=== PATIENT | male | born 1965 | race Caucasian/White ===

== ENCOUNTER 2016-12-20 07:31 | Outpatient (CLI) | payer MEDICAID | END 2016-12-20 07:32 | disposition home or self-care (01) | DX: R91.8 Other nonspecific abnormal finding of lung field (principal) ==

== ENCOUNTER 2017-07-03 09:50 | Outpatient (CLI) | payer MEDICAID ==
--- NOTE | 2017-07-03 17:36 | XRAY Report ---
LUMBAR SPINE, THREE VIEWS: 07/03/2017 HISTORY: Back pain. COMPARISON: None. FINDINGS: The vertebral bodies are normal in height and alignment. The disk spaces are well maintai momo. No significant facet joint arthropathy. Sacroiliac joints are grossly unremarkable. IMPRESSION: NEGATIVE THREE VIEW LUMBAR SPINE. IF PAIN PERSISTS, CONSIDER MRI. JOB #: [id number] EXT JOB #:[id number]
--- NOTE | 2017-07-03 17:43 | XRAY Report ---
PELVIS AND RIGHT HIP: 07/03/2017 AP view of the pelvis and lateral view of the right hip show the hip joints to be well maintained. N o fracture, malalignment, joint space narrowing, bone destruction or other finding. IMPRESSION: NEGATIVE PELVIS AND RIGHT HIP. JOB #: [id number] EXT JOB #:[id number]
== END 2017-07-03 09:51 | disposition home or self-care (01) ==
LOC: DI.S 09:50
PROVIDERS: ATTEND Nurse Practitioner Family
DX: M54.5 Low back pain (principal); M25.551 Pain in right hip; G89.29 Other chronic pain
CPT/HCPCS: 72100

== ENCOUNTER 2018-11-03 14:15 | Outpatient (CLI) | payer MEDICAID | END 2018-11-03 14:16 | disposition EMS.NT | LOC: EMS 14:15 | PROVIDERS: ATTEND Surgery | DX: R42 Dizziness and giddiness (principal); R03.0 Elevated blood-pressure reading, without diagnosis of hypertension ==

== ENCOUNTER 2019-01-24 07:25 | Outpatient (CLI) | payer MEDICAID ==
[2019-01-24 10:58] LABS: CALCIUM 9.4 mg/dL (8.5-10.3); CREATININE 0.8 mg/dL (0.6-1.2)
== END 2019-01-24 07:26 | disposition home or self-care (01) ==
LOC: LAB.F 07:25
PROVIDERS: ATTEND Internal Medicine Cardiovascular Disease
DX: I10 Essential (primary) hypertension (principal)
CPT/HCPCS: 36415; 80048

== ENCOUNTER 2019-03-17 07:19 | Outpatient (CLI) | payer MEDICAID ==
--- NOTE | 2019-03-17 10:06 | Ultrasound Report ---
Reason: ABDOMINAL PAIN Procedure Date: 03/17/2019 Accession Number: [id number] / [id number] Procedure: US - Abdomen Limited CPT Code: FULL RESULT: EXAM: ABDOMEN ULTRASOUND LIMITED, RUQ EXAM DATE: 03/17/2019 07:26 AM. CLINICAL HISTORY: Abdominal pain. Right upper quadrant pain that radiates at times to right lower quadrant. COMPARISON: None. TECHNIQUE: Real-time scanning was performed with static images obtained. FINDINGS: Liver: Hepatic parenchyma is echogenic which limits evaluation for underlying mass, none is seen. Right lobe of the liver measures at least 17 cm. Main portal vein flow: Hepatopetal. Gallbladder: Normal. No stones, wall thickening, or sonographic Mendoza's sign. Biliary System: CBD measures 5 mm. No intrahepatic or extrahepatic ductal dilatation. Other: Right kidney measures 11.3 cm in maximal sagittal dimension and demonstrates no gross hydronephrosis or calculus. IMPRESSION: Echogenic liver which can be seen with parenchymal disease such as steatosis. Please note that during the examination of the right kidney, the patient's pain appears to localize to the flank area of the kidney. No hydronephrosis or renal calculus. RADIA
== END 2019-03-17 07:20 | disposition home or self-care (01) ==
LOC: DI 07:19
PROVIDERS: ATTEND Physician Assistant Medical
DX: R10.9 Unspecified abdominal pain (principal); R93.2 Abnormal findings on diagnostic imaging of liver and biliary tract
CPT/HCPCS: 76705

== ENCOUNTER 2019-04-04 07:30 | Outpatient (CLI) | payer MEDICAID ==
[2019-04-04 10:00] LABS: BASOPHILS # (AUTO) 0.1 10^3/uL (0.0-0.1); BASOPHILS % (AUTO) 1.7 %; EOSINOPHILS # (AUTO) 0.5 10^3/uL (0.0-0.7); EOSINOPHILS % (AUTO) 7.3 %; HGB - HEMOGLOBIN 13.1 g/dL (14.0-18.0); LYMPHOCYTES # (AUTO) 1.6 10^3/uL (1.5-3.5); LYMPHOCYTES % (AUTO) 21.5 %; MEAN CORPUSCULAR HEMOGLOBIN 29.1 pg (27.0-31.0); MEAN CORPUSCULAR HGB CONC 31.5 g/dL (32.0-36.0); MEAN CORPUSCULAR VOLUME 92.4 fL (80.0-94.0); MEAN PLATELET VOLUME 10.9 fL (7.4-11.4); MONOCYTES # (AUTO) 0.7 10^3/uL (0.0-1.0); NEUTROPHILS # (AUTO) 4.4 10^3/uL (1.5-6.6); NEUTROPHILS % (AUTO) 59.9 %; PLT - PLATELET COUNT 206 10^3/uL (130-450); RED CELL DISTRIBUTION WIDTH 12.6 % (12.0-15.0); WHITE BLOOD COUNT 7.3 x10^3/uL (4.8-10.8)
== END 2019-04-04 07:31 | disposition home or self-care (01) ==
LOC: LAB.F 07:30
PROVIDERS: ATTEND Internal Medicine Gastroenterology
DX: I10 Essential (primary) hypertension (principal); R10.31 Right lower quadrant pain; E78.5 Hyperlipidemia, unspecified; I25.10 Atherosclerotic heart disease of native coronary artery without angina pectoris; F10.10 Alcohol abuse, uncomplicated; R19.5 Other fecal abnormalities
CPT/HCPCS: 36415; 80053; 80061; 83690; 83721; 85025

== ENCOUNTER 2019-04-08 08:32 | Day surgery (SDC) | payer MEDICAID ==
[2019-04-08] MEDS ORDERED: LACTATED RINGERS 1,000 ML IV ONE (09:24)
[2019-04-08] MEDS ORDERED: fentaNYL 250 MCG/5 ML VIAL IVP ONE (10:04)
[2019-04-08] MEDS ORDERED: MIDAZOLAM 2 MG/2 ML VIAL IVP ONE (10:04)
[2019-04-08] MEDS ORDERED: LIDO GARGLE 30 ML BOTTLE ONE (10:15)
[2019-04-08 11:32] VITALS: BP 106/67
[2019-04-08] MEDS ORDERED: LIDO GARGLE 30 ML BOTTLE PO ONE (11:35)
== END 2019-04-08 08:33 | disposition home or self-care (01) ==
LOC: SDS 08:32
PROVIDERS: ATTEND Internal Medicine Gastroenterology
PROC: 0DB58ZX Excision of Esophagus, Via Natural or Artificial Opening Endoscopic, Diagnostic (ICD-10-PCS; 2019-04-08)
PROC: 0DBL8ZZ Excision of Transverse Colon, Via Natural or Artificial Opening Endoscopic (ICD-10-PCS; 2019-04-08)
PROC: 0DBM8ZZ Excision of Descending Colon, Via Natural or Artificial Opening Endoscopic (ICD-10-PCS; 2019-04-08)
PROC: 0DB98ZX Excision of Duodenum, Via Natural or Artificial Opening Endoscopic, Diagnostic (ICD-10-PCS; principal; 2019-04-08 10:15)
PROC: 0DB78ZX Excision of Stomach, Pylorus, Via Natural or Artificial Opening Endoscopic, Diagnostic (ICD-10-PCS; 2019-04-08 10:15)
DX: R19.5 Other fecal abnormalities (principal); R10.31 Right lower quadrant pain; D12.4 Benign neoplasm of descending colon; D12.3 Benign neoplasm of transverse colon; K57.30 Diverticulosis of large intestine without perforation or abscess without bleeding; R10.13 Epigastric pain; K21.9 Gastro-esophageal reflux disease without esophagitis; K22.9 Disease of esophagus, unspecified; K29.50 Unspecified chronic gastritis without bleeding; F10.20 Alcohol dependence, uncomplicated; K70.0 Alcoholic fatty liver; I11.0 Hypertensive heart disease with heart failure; I50.9 Heart failure, unspecified; F17.210 Nicotine dependence, cigarettes, uncomplicated; Z79.82 Long term (current) use of aspirin; Z79.899 Other long term (current) drug therapy; Z80.0 Family history of malignant neoplasm of digestive organs
CPT/HCPCS: 43239; 45380; 45385; A9270; J3010; J7120

== ENCOUNTER 2019-09-13 06:50 | Outpatient (CLI) | payer MEDICAID ==
[~2019-09-13 06:50] MED LIST: IOVERSOL 320 100 ML VIAL IVP ONE; IOVERSOL 320 50 ML VIAL ONE
[2019-09-13] MEDS ORDERED: IOVERSOL 320 100 ML VIAL IVP ONE ×2 (06:55→08:47)
[2019-09-13] MEDS ORDERED: IOVERSOL 320 50 ML VIAL ONE (06:55)
[2019-09-13] MEDS ORDERED: IOVERSOL 320 50 ML VIAL PO ONE (08:47)
--- NOTE | 2019-09-13 08:58 | CT Report ---
Reason: RLQ ABDOMINAL PAIN Procedure Date: 09/13/2019 Accession Number: [id number] / [id number] Procedure: CT - Abdomen/Pelvis W CPT Code: Final Report FULL RESULT: EXAM: CT ABDOMEN AND PELVIS EXAM DATE: 09/13/2019 08:35 AM. CLINICAL HISTORY: RLQ ABDOMINAL PAIN. COMPARISONS: CHEST W/O 12/20/2016 8:28 AM. TECHNIQUE: Routine helical CT imaging was performed through the abdomen and pelvis. IV contrast: 90 cc Optiray 320. Enteric contrast: No. Reconstructions: Coronal and sagittal. In accordance with CT protocol optimization, one or more of the following dose reduction techniques were utilized for this exam: automated exposure control, adjustment of mA and/or KV based on patient size, or use of iterative reconstructive technique. FINDINGS: Lung Bases: 1.2 cm right base pulmonary nodule appears essentially unchanged compared to 2017 and is likely benign. No new nodules. No pleural effusions. Liver: Diffuse mild hepatic parenchymal hypoattenuation could reflect diffuse mild underlying steatosis. No enhancing liver lesions. Gallbladder/Bile Ducts: Unremarkable. Spleen: No splenomegaly or focal lesion. Small accessory spleen seen inferior to the spleen Pancreas: Punctate pancreatic calcifications could reflect sequelae of chronic pancreatitis. No acute inflammation. No ductal dilation. Adrenal Glands: Normal. Kidneys: Normal. No masses or hydronephrosis. Peritoneal Cavity/Bowel: Unremarkable stomach. Normal caliber bowel loops without obstruction. Normal appendix. Scattered sigmoid colonic diverticula without inflammation. No enlarged intra-abdominal lymph nodes. No fluid collections. Pelvic Organs: Unremarkable urinary bladder for degree of distention. Prostate and seminal vesicles are normal. No enlarged pelvic or inguinal lymph nodes. Vasculature: No aneurysms or other significant abnormality. Bones: No significant abnormality. Other: Tiny fat-containing inguinal hernias bilaterally. IMPRESSION: 1. No acute abnormality seen in the abdomen or pelvis by CT. Normal appendix. No CT findings to explain acute pain. 2. Sigmoid colonic diverticulosis without evidence of acute diverticulitis. 3. Probable diffuse mild hepatic steatosis. RADIA
== END 2019-09-13 06:51 | disposition home or self-care (01) ==
LOC: DI 06:50
PROVIDERS: ATTEND Internal Medicine
DX: R03.1 Nonspecific low blood-pressure reading (principal); K57.30 Diverticulosis of large intestine without perforation or abscess without bleeding
CPT/HCPCS: 74177; Q9967

== ENCOUNTER 2020-05-06 07:13 | Outpatient (CLI) | payer MEDICAID ==
[2020-05-06 07:47] LABS: ALBUMIN 4.3 g/dL (3.2-5.5); ALBUMIN/GLOBULIN RATIO 1.5 (1.0-2.2); BILIRUBIN,TOTAL 0.6 mg/dL (0.2-1.0); TOTAL PROTEIN 7.2 g/dL (6.7-8.2)
--- NOTE | 2020-05-06 10:10 | CT Report ---
PROCEDURE: CHEST WO INDICATIONS: PULMONARY NODULES TECHNIQUE: Noncontrast 5 mm thick sections acquired from the pulmonary apices to the posterior costophrenic angl es. 7 mm thick coronal and sagittal MIP reformats were then acquired. For radiation dose reduction, the following was used: automated exposure control, adjustment of mA and/or kV according to patient size. COMPARISON: 12/20/2016 and 07/29/2013 FINDINGS: Image quality: Excellent. Lungs and pleura: Previously noted left upper lobe nodule is unchanged, again measuring approximately 3 mm (series 4 image 43). Previously described subpleural right lower lobe nodule is also unchanged, again measuring approximately 1.1 cm (series 4 image 190). There is no new or enlarging pulmonary no dule. No significant pleural abnormality. Mediastinum: Normal heart size. No pericardial effusion. Calcific coronary atherosclerosis again note d. Nonaneurysmal abdominal aorta. Normal caliber main pulmonary trunk. No surgical enlarged mediastin al lymph node. Linn not well assessed due to lack of IV contrast. Bones and chest wall: No suspicious bony lesions. No vertebral body compression fractures. No axil elisha or supraclavicular adenopathy by size criteria. Abdomen: Visualized upper abdominal solid organs and bowel loops appear normal in the absence of con trast. IMPRESSION: Unchanged bilateral pulmonary nodules when compared with 07/29/2013. These are statistically benign a nd require no additional follow-up. Reviewed by: Jerald Estrada MD on 05/06/2020 10:09 AM PDT Approved by: Jerald Estrada MD on 05/06/2020 10:09 AM PDT Station ID: [id number]
== END 2020-05-06 07:14 | disposition home or self-care (01) ==
LOC: DI 07:13
PROVIDERS: ATTEND Internal Medicine
DX: R91.8 Other nonspecific abnormal finding of lung field (principal); I25.10 Atherosclerotic heart disease of native coronary artery without angina pectoris
CPT/HCPCS: 36415; 71250; 80053

== ENCOUNTER 2020-11-08 22:37 | Emergency (ER) | payer MEDICAID ==
[2020-11-08] MEDS ORDERED: KETOROLAC 60 MG/2 ML VIAL IM STA (23:12)
[2020-11-08] MEDS ORDERED: predniSONE 20 MG TABLET PO STA (23:14)
--- NOTE | 2020-11-08 23:43 | ED Physician Documentation ---
History of Present Illness - Stated complaint Stated Complaint: LT FOOT PX - Chief complaint Chief Complaint: Ext Problem - History obtained from History obtained from: Patient - Additonal information Additional information: 55yM with pmh gout p/w L first toe pain he attributes to a gout flare. constant, gradual onset, severe, 10/10, nonradiating, worse with walking, a/w mild swelling but no redness or fevers. no traumatic injury Review of Systems Constitutional: denies: Fever Skin: reports: Other (swelling) Musculoskeletal: reports: Extremity pain, Joint pain PD PAST MEDICAL HISTORY - Past Medical History Past Medical History: Yes Cardiovascular: Hypertension, High cholesterol Respiratory: None Endocrine/Autoimmune: None GI: GERD : None HEENT: None Psych: None Musculoskeletal: Gout Derm: None - Past Surgical History Past Surgical History: Yes Ortho: Shoulder arthroplasty Cardiovascular: Coronary stent - Present Medications Home Medications: Ambulatory Orders Medication Instructions Recorded Confirmed Aspirin Chewable [St Darryl 81 mg PO DAILY 04/08/19 04/08/19 Aspirin] Atorvastatin Calcium 40 mg PO DAILY 04/08/19 04/08/19 Losartan Potassium [Cozaar] 100 mg PO DAILY 04/08/19 04/08/19 Omeprazole/Sodium Bicarbonate 1 each PO DAILY 04/08/19 04/08/19 [Omeprazole-Bicarb 20-1,100 Cap] amLODIPine [Norvasc] 5 mg PO DAILY 04/08/19 04/08/19 predniSONE [Prednisone 21-TAB dose 40 mg PO QDAC #21 tab.ds.pk 11/08/20 pack] - Allergies Allergies/Adverse Reactions: Allergies Allergy/AdvReac Type Severity Reaction Status Date / Time No Known Drug Allergies Allergy Verified 11/08/20 22:45 - Social History Does the pt smoke?: Yes Smoking Status: Current every day smoker Does the pt drink ETOH?: Yes Does the pt have substance abuse?: No - Immunizations Immunizations are current?: No - POLST Patient has POLST: No PD ED PE NORMAL - Vitals Vital signs reviewed: Yes - General General: Alert and oriented X 3 - Extremities Extremities: Other (L first pip joint swollen and ttp. no calor/rubor) - Neuro Neuro: Alert and oriented X 3 Results - Vitals Vitals: Vital Signs - 24 hr 11/08/20 22:45 Temperature 36.6 C Heart Rate 65 Respiratory 16 Rate Blood Pressure 152/90 H O2 Saturation 98 Oxygen O2 Source Room air PD MEDICAL DECISION MAKING - ED course ED course: 55yM p/w simple gout flare. He has history of NSAID intolerance 2/2 gerd ther efore will prescribe short steroid course. patient will f/u with pcp. return precautions given. Departure - Departure Disposition: Home, Self Care Clinical Impression: Gout attack Condition: Good Instructions: Gout Attack Tx Prescriptions: predniSONE [Prednisone 21-TAB dose pack] 40 mg PO QDAC #21 tab.ds.pk Comments: You were seen in the emergency department for a gout attack. You were given a st jeffy anti-inflammatory and steroid. You should take your prescription and supplement it with ibuprofen 400 mg (2 regular pills) as needed every 6 hours for pain. Take on a full stomach. do not take if you have bleeding. Follow up with your primary doctor for continuation of your steroid prescription. You should continue steroids until your symptoms go away, then taper down by 10mg daily over the course of a week. Return to the ED for any new or worsening symptoms, if you have fevers, or other concerns.
[2020-11-08 23:57] VITALS: BP 148/88
== END 2020-11-08 23:56 | disposition home or self-care (01) ==
LOC: ED 22:37
DX: M10.072 Idiopathic gout, left ankle and foot (principal); Z88.8 Allergy status to other drugs, medicaments and biological substances; K21.9 Gastro-esophageal reflux disease without esophagitis; I10 Essential (primary) hypertension; Z79.82 Long term (current) use of aspirin; F17.200 Nicotine dependence, unspecified, uncomplicated
CPT/HCPCS: 96372; 99281; 99283; J7512

== ENCOUNTER 2021-12-11 10:31 | Emergency (ER) | payer MEDICAID ==
--- NOTE | 2021-12-11 11:10 | ED Physician Documentation ---
History of Present Illness - Stated complaint Stated Complaint: SHOULDER PAIN - Chief complaint Chief Complaint: Resp - History obtained from History obtained from: Patient - History of Present Illness Timing: Today Pain level max: 6 Pain level now: 5 - Additonal information Additional information: 56-year-old male presents to the emergency department complaining of cough with brown sputum for the past 2 months. Nothing makes it better or worse. He states he is also having left shoulder pain for the past 2 to 3 months. Worse with movement, better with rest. Does not recall any injury. He states he had fevers this week. Has taken 2 home negative Covid test. Has had his Covid vaccinations. No numbness or tingling. Does not smoke. No vaping. Denies any other drug use. Review of Systems Constitutional: denies: Fever GI: denies: Vomiting, Diarrhea Skin: denies: Rash Musculoskeletal: denies: Neck pain, Back pain Neurologic: denies: Headache PD PAST MEDICAL HISTORY - Past Medical History Past Medical History: Yes Cardiovascular: High cholesterol, Hypertension Respiratory: None Endocrine/Autoimmune: None GI: GERD : None HEENT: None Psych: None Musculoskeletal: Gout Derm: None - Past Surgical History Past Surgical History: Yes Ortho: Shoulder arthroplasty Cardiovascular: Coronary stent - Present Medications Home Medications: Ambulatory Orders Medication Instructions Recorded Confirmed Aspirin Chewable [St Darryl 81 mg PO DAILY 04/08/19 04/08/19 Aspirin] Atorvastatin Calcium 40 mg PO DAILY 04/08/19 04/08/19 Losartan Potassium [Cozaar] 100 mg PO DAILY 04/08/19 04/08/19 Omeprazole/Sodium Bicarbonate 1 each PO DAILY 04/08/19 04/08/19 [Omeprazole-Bicarb 20-1,100 Cap] amLODIPine [Norvasc] 5 mg PO DAILY 04/08/19 04/08/19 predniSONE [Prednisone 21-TAB dose 40 mg PO QDAC #21 tab.ds.pk 11/08/20 pack] Amox/Clav 875/125 [Augmentin] 1 tab PO Q12H #20 tablet 12/11/21 Doxycycline Monohydrate 100 mg PO BID #20 cap 12/11/21 - Allergies Allergies/Adverse Reactions: Allergies Allergy/AdvReac Type Severity Reaction Status Date / Time No Known Drug Allergies Allergy Verified 12/11/21 10:41 - Social History Does the pt smoke?: Yes Smoking Status: Current every day smoker Does the pt drink ETOH?: Yes Does the pt have substance abuse?: No - Immunizations Immunizations are current?: No - POLST Patient has POLST: No PD ED PE NORMAL - Vitals Vital signs reviewed: Yes - General General: Alert and oriented X 3, No acute distress - HEENT HEENT: PERRL, Moist mucous membranes - Neck Neck: Supple, no meningeal sign, No bony TTP - Cardiac Cardiac: RRR, No murmur - Respiratory Respiratory: No respiratory distress, Other (Rhonchi left upper lobe that does not clear with cough. Otherwise clear lungs) - Abdomen Abdomen: Soft, Non tender, Non distended - Back Back: No spinal TTP - Derm Derm: Warm and dry - Extremities Extremities: No deformity, Other (Mild tenderness to palpation, near the posterior aspect of the left AC joint. No glenohumeral tenderness. Pain with abduction of the left arm above 90 degrees. Neurovascularly intact including the axillary nerve.) - Neuro Neuro: Alert and oriented X 3 - Psych Psych: Normal mood, Normal affect - Free text exam Free text exam: 4 x 4 centimeter soft tissue swelling, doughy mass in the upper thoracic area. Results - Vitals Vitals: Vital Signs - 24 hr 12/11/21 12/11/21 12/11/21 10:37 10:55 12:32 Temperature 36.1 C L 36.5 C Heart Rate 69 67 66 Respiratory 18 17 16 Rate Blood Pressure 135/82 H 133/97 H 130/88 H O2 Saturation 97 94 96 Oxygen O2 Source Room air - Labs Labs: Laboratory Tests 12/11/21 12/11/21 11:32 11:32 WBC 8.5 RBC 4.55 L Hgb 13.3 L Hct 40.9 L MCV 89.9 MCH 29.2 MCHC 32.5 RDW 12.8 Plt Count 224 MPV 10.2 Neut # (Auto) 5.2 Lymph # (Auto) 2.0 [place] # (Auto) 0.7 Eos # (Auto) 0.5 Baso # (Auto) 0.1 Absolute Nucleated RBC 0.00 Nucleated RBC % 0.0 Sodium 138 Potassium 3.9 Chloride 104 Carbon Dioxide 25 Anion Gap 9.0 BUN 22 H Creatinine 1.1 Estimated GFR (MDRD) 69 L Glucose 95 Calcium 9.2 Total Bilirubin 0.6 AST 27 ALT 35 Alkaline Phosphatase 64 Total Protein 7.5 Albumin 4.4 Globulin 3.1 Albumin/Globulin Ratio 1.4 - Rads (name of study) cxr Radiology: Final report received, EMP read contemporaneously, See rad report L shoulder xray Radiology: Final report received, EMP read contemporaneously, See rad report PD MEDICAL DECISION MAKING - ED course Complexity details: reviewed results, re-evaluated patient, considered differential, d/w patient ED course: Chest x-ray does not show any acute abnormalities. Left shoulder x-ray shows moderate hypertrophic osteoarthrosis of the left AC joint with minimal glenohumeral joint change Given the amount of time that the coughing has persisted with the sputum changes, we will trial on antibiotics and see how he progresses. Patient declines any pain medication here or for home. Covid PCR was also sent. Patient is well-appearing, nontoxic. Afebrile. Patient counseled regarding signs and symptoms for which I believe and urgent re- evaluation would be necessary. Patient with good understanding of and agreement to plan and is comfortable going home at this time This document was made in part using voice recognition software. While efforts are made to proofread this document, sound alike and grammatical errors may occur. Departure - Departure Disposition: 01 Home, Self Care Clinical Impression: Atypical pneumonia Shoulder pain, left Qualifiers: Chronicity: acute Qualified Code(s): M25.512 - Pain in left shoulder Lipoma Qualifiers: Lipoma location: trunk Qualified Code(s): D17.1 - Benign lipomatous neoplasm of skin and subcutaneous tissue of trunk Condition: Good Instructions: ED Lipoma, ED Pneumonia Adult Follow-Up: your,doctor in 1 week [Other] [facility] [place] [Provider Group] [facility] [Provider Group] [facility] [Provider Group] Prescriptions: Amox/Clav 875/125 [Augmentin] 1 tab PO Q12H #20 tablet Doxycycline Monohydrate 100 mg PO BID #20 cap Comments: Take all antibiotics until gone. Follow-up with a primary care provider for further care. [facility] also has a [facility] office. Your prescriptions were sent to [facility] in [place]. Please return if you worsen. The swelling on the back appears to be a lipoma, but this should be followed up closely with a primary care provider. 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 No acute fracture or dislocation. Discharge Date/Time: 12/11/21 12:32
--- NOTE | 2021-12-11 11:37 | XRAY Report ---
PROCEDURE: Chest 2 View X-Ray INDICATIONS: cough, fever TECHNIQUE: 2 view(s) of the chest. COMPARISON: The chest dated 05/06/2020. FINDINGS: Surgical changes and devices: None. Lungs and pleura: No pleural effusions or pneumothorax. Lungs are clear. Mediastinum: Mediastinal contours are normal. Heart size is normal. Bones and chest wall: No suspicious bony abnormalities. Soft tissues appear unremarkable. IMPRESSION: Chest without acute cardiopulmonary abnormalities or focal consolidation. Reviewed by: Sid Damon MD on 12/11/2021 10:36 AM [facility] Approved by: Sid Damon MD on 12/11/2021 10:36 AM [facility] Station ID: [id number]
--- NOTE | 2021-12-11 11:39 | XRAY Report ---
PROCEDURE: Shoulder 3 View LT INDICATIONS: shoulder pain, no known injury TECHNIQUE: 3 views of the shoulder were acquired. COMPARISON: None. FINDINGS: Bones: No fractures or dislocations. No suspicious bony lesions. Visualized ribs appear intact. T here are moderate hypertrophic osteoarthritic changes of the left acromioclavicular joint. Minimal gl enohumeral joint degenerative change. Soft tissues: No suspicious soft tissue calcifications. Visualized portions of the lungs appear sandi r. 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 No acute fracture or dislocation. Reviewed by: Sid Damon MD on 12/11/2021 10:37 AM [facility] Approved by: Sid Damon MD on 12/11/2021 10:37 AM [facility] Station ID: [id number]
[2021-12-11 11:43] LABS: BASOPHILS # (AUTO) 0.1 10^3/uL (0.0-0.1); BASOPHILS % (AUTO) 0.8 %; EOSINOPHILS # (AUTO) 0.5 10^3/uL (0.0-0.7); EOSINOPHILS % (AUTO) 5.9 %; HCT - HEMATOCRIT 40.9 % (42.0-52.0); HGB - HEMOGLOBIN 13.3 g/dL (14.0-18.0); LYMPHOCYTES % (AUTO) 23.2 %; MEAN CORPUSCULAR HEMOGLOBIN 29.2 pg (27.0-31.0); MEAN CORPUSCULAR HGB CONC 32.5 g/dL (32.0-36.0); MEAN CORPUSCULAR VOLUME 89.9 fL (80.0-94.0); MEAN PLATELET VOLUME 10.2 fL (7.4-11.4); MONOCYTES # (AUTO) 0.7 10^3/uL (0.0-1.0); MONOCYTES % (AUTO) 8.5 %; NEUTROPHILS # (AUTO) 5.2 10^3/uL (1.5-6.6); NEUTROPHILS % (AUTO) 61.1 %; PLT - PLATELET COUNT 224 10^3/uL (130-450); RED BLOOD COUNT 4.55 10^6/uL (4.70-6.10); RED CELL DISTRIBUTION WIDTH 12.8 % (12.0-15.0); WHITE BLOOD COUNT 8.5 x10^3/uL (4.8-10.8)
[2021-12-11 11:53] LABS: ALBUMIN 4.4 g/dL (3.2-5.5); ALBUMIN/GLOBULIN RATIO 1.4 (1.0-2.2); BILIRUBIN,TOTAL 0.6 mg/dL (0.2-1.0); CALCIUM 9.2 mg/dL (8.5-10.3); CREATININE 1.1 mg/dL (0.6-1.2); POTASSIUM 3.9 mmol/L (3.5-5.0); TOTAL PROTEIN 7.5 g/dL (6.7-8.2)
[2021-12-11] MEDS ORDERED: DOXYCYCLINE 100 MG TABLET PO STA (12:19)
[2021-12-11] MEDS ORDERED: AMOX/CLAV 875 MG/125 MG TABLET PO STA (12:19)
[2021-12-11 12:33] VITALS: BP 130/88
== END 2021-12-11 12:32 | disposition home or self-care (01) ==
LOC: ED 10:31
DX: J18.9 Pneumonia, unspecified organism (principal); M19.012 Primary osteoarthritis, left shoulder; D17.1 Benign lipomatous neoplasm of skin and subcutaneous tissue of trunk; F17.200 Nicotine dependence, unspecified, uncomplicated; Z20.822 Contact with and (suspected) exposure to COVID-19
CPT/HCPCS: 36415; 71046; 73030; 80053; 85025; 87635; 99284; A9270

== ENCOUNTER 2022-11-23 00:16 | Emergency (ER) | payer MEDICAID ==
--- NOTE | 2022-11-23 00:39 | ED Physician Documentation ---
PD HPI UPPER EXT INJURY - Stated complaint Stated Complaint: LT HAND FINGER INJ - Chief complaint Chief Complaint: Ext Problem - History obtained from History obtained from: Patient - History of Present Illness Location: Left, Finger Where injury occurred: Home Timing - onset: Enter time (13:30), Today Timing - details: Abrupt onset Improved by: No: Rest Worsened by: Moving, Palpating Associated symptoms: No: Weakness, Numbness - Additonal information Additional information: HPI from patient. Patient c/o left fourth (ring) finger pain, sudden onset at approximately 1:30 PM today when a concrete septic cover crushed the digit. He is right hand dominant. UTD on tetanus. Review of Systems Skin: reports: Laceration (s) Musculoskeletal: reports: Extremity pain Neurologic: denies: Focal weakness, Numbness PD PAST MEDICAL HISTORY - Past Medical History Past Medical History: Yes Cardiovascular: High cholesterol, Hypertension Respiratory: None Endocrine/Autoimmune: None GI: GERD : None HEENT: None Psych: None Musculoskeletal: Gout Derm: None - Past Surgical History Past Surgical History: Yes Ortho: Shoulder arthroplasty Cardiovascular: Coronary stent - Present Medications Home Medications: Ambulatory Orders Medication Instructions Recorded Confirmed Aspirin Chewable [St Darryl 81 mg PO DAILY 04/08/19 11/23/22 Aspirin] Atorvastatin Calcium 40 mg PO DAILY 04/08/19 11/23/22 Losartan Potassium [Cozaar] 100 mg PO DAILY 04/08/19 11/23/22 Omeprazole/Sodium Bicarbonate 1 each PO DAILY 04/08/19 11/23/22 [Omeprazole-Bicarb 20-1,100 Cap] amLODIPine [Norvasc] 5 mg PO DAILY 04/08/19 11/23/22 predniSONE [Prednisone 21-TAB dose 40 mg PO QDAC #21 tab.ds.pk 11/08/20 11/23/22 pack] Amox/Clav 875/125 [Augmentin] 1 tab PO Q12H #20 tablet 12/11/21 11/23/22 Doxycycline Monohydrate 100 mg PO BID #20 cap 12/11/21 11/23/22 Amox/Clav 875/125 [Augmentin 1 tablet PO Q12H 5 Days #10 tablet 11/23/22 875/125 Tab] Oxycodone HCl/Acetaminophen 1 - 2 each PO Q6H PRN #10 tablet 11/23/22 [Percocet 5-325 mg Tablet] - Allergies Allergies/Adverse Reactions: Allergies Allergy/AdvReac Type Severity Reaction Status Date / Time No Known Drug Allergies Allergy Verified 11/23/22 00:23 - Social History Does the pt smoke?: Yes Smoking Status: Current every day smoker Does the pt drink ETOH?: Yes Does the pt have substance abuse?: No - Immunizations Immunizations are current?: No - POLST Patient has POLST: No PD ED PE NORMAL - Vitals Vital signs reviewed: Yes - General General: Alert and oriented X 3, No acute distress, Well developed/nourished - Neuro Neuro: No motor deficit, No sensory deficit (LTS intact left ring finger at tip (medial, lateral, dorsal, and ventral surfaces). Brisk capillary refill at tip of left fourth finger. Full flexion and extension left 4th finger. ) PD ED PE EXPANDED - Extremities Extremities: Other (mild bony tenderness to palpation of left fourth (ring) finger distal and medial phalanx without gross deformtiy or crepitus) LELE UE/Hands Visual: 1 - laceration (bevelled laceration; base of laceration abutts, but does not involve, the proximal nail fold; the open part of the flap laceration extends to the DIP joint) Results - Vitals Vitals: Oxygen O2 Source Room air PD Medical Decision Making - ED course Complexity details: considered differential, d/w patient ED course: Patient has mild tenderness to palpation of left fourth middle and distal phalanges, most pronounced at DIP joint. I recommended xrays which he refuses. Risks/benefits of xrays/refusing xrays were discussed (xrays might demonstrate fracture, which, in turn could alter follow up recommendations; similarly, findings on plain film might suggest tendon/ligament avulsion , similarly affecting f/u recommendations; benefits of refusing would include avoidance of radiation and cost). He declines but understands that he needs to follow up with his primary care provider within the next several days for reevaluation. The laceration is a bevelled flap laceration, and the wound edges of the flap are too thin to provide confidence that sutures would stay in place if utilized. The wound underneath the lac/flap is down to deep dermal layers but no adipose tissue, neurovascular structures, tendons, muscle, or bone are visible. I reapproximated the wound edges, after irrigation with NS, using steri-strips (reinforced with benzoin) which were further reinforced with two layers of dermabond. Return precautions d/w patient. He is provied augmentin in ED and rx for same (to prophylax against bacterial infection), and rx for augmentin is electronically submitted to his pharmacy of choice. Finger splint placed for comfort and to minimize movement of the finger (to speed healing). I am prescribing a short course of short-acting opioid pain medication for this patient. I have reviewed the patients STOCK CLIPPER and no concerning findings were noted. I have discussed that the opioids are for short term therapy only, and will not be refilled from the ED. Departure - Departure Disposition: 01 Home, Self Care Clinical Impression: Finger laceration Qualifiers: Encounter type: initial encounter Finger: ring finger Damage to nail status: without damage Foreign body presence: without foreign body Laterality: left Qualified Code(s): S61.215A - Laceration without foreign body of left ring finger without damage to nail, initial encounter Condition: Good Instructions: ED Laceration Ext Skin Glue Prescriptions: Amox/Clav 875/125 [Augmentin 875/125 Tab] 1 tablet PO Q12H 5 Days #10 tablet Oxycodone HCl/Acetaminophen [Percocet 5-325 mg Tablet] 1 - 2 each PO Q6H PRN #10 tablet PRN Reason: pain Comments: I have reapproximated the edges of your finger laceration using Steri-Strips as well as Dermabond (tissue adhesive, "glue"). I did not place any stitches, as the laceration flap was too thin to be able to hold stitches.You are given an antibiotic to minimize the risk of infection of the wound, and a prescription for 5 days of the antibiotic has been electronically submitted to [facility] pharmacy in [place]. Additionally, I have also submitted a prescription for more of the Vicodin (narcotic/opiate pain medication) in case you need it. The strips and the glue will eventually begin to peel away from the wound. You can just let the material fall off on its own or else you can peel it off once the material is completely on one side of the laceration or the other. If you do peel off the strips and or the glue, be sure to hold pressure on the wound edges to prevent them from peeling open. It is okay if the injury site gets wet briefly (as in to clean the area), but do not soak the wound and if the area gets wet, be sure to thoroughly dry it before reapplying any dressing and/or the splint. As the swelling and pain starteto subside, if you find that you do not have the ability to completely straighten the finger, consider returning to the emergency department or otherwise following up with your primary care provider, as x-rays would likely be indicated. I am prescribing a short course of narcotic pain medication for you. These are potentially dangerous and addictive medications that should be used carefully. These medications may constipate you. Take an qlrs-nwb-chkdgfz stool softener (docusate) twice daily with plenty of water while taking these medications. If you go 24 hours without a bowel movement, take boes-[id number]-gmzsrii miralax, per package instructions. Do not drink or drive while taking these medications. If you received narcotic or sedating medications while in the emergency department, do not drive for 24 hours. Store this medication in a safe, secure place and out of reach of children. It is a violation of federal law to give or sell this medication to another person or to use in a manner other than prescribed. The ED will not refill narcotic prescriptions, including prescriptions lost or stolen. To dispose of unwanted medications: 1. [facility] at [address] [facility] in [place] has a medication drop box. They accept prescription medications (in pill form) Sunday through Sunday 9:00 a.m. to 5:00 p.m. 2. The [facility] [employer] Department accepts prescription medications (in pill form only) for disposal year round. Call for more information. 3. Contact the [facility] for the next [facility] sponsored prescription drug collection event. , [phone], or [phone]; Discharge Date/Time: 11/23/22 03:26
[2022-11-23] MEDS ORDERED: oxyCODONE/ACET 5/325 Prepack 4 PO STA (01:38)
[2022-11-23] MEDS ORDERED: AMOX/CLAV 875 MG/125 MG TABLET PO STA (01:38)
[2022-11-23 02:22] VITALS: BP 149/96
== END 2022-11-23 03:26 | disposition home or self-care (01) ==
LOC: ED 00:16
DX: S67.195A Crushing injury of left ring finger, initial encounter (principal); S61.215A Laceration without foreign body of left ring finger without damage to nail, initial encounter; W20.8XXA Other cause of strike by thrown, projected or falling object, initial encounter; F17.200 Nicotine dependence, unspecified, uncomplicated
CPT/HCPCS: 99282; 99283; A9270

== ENCOUNTER 2022-12-14 06:33 | Outpatient (CLI) | payer MEDICAID ==
[2022-12-14 07:02] LABS: BASOPHILS # (AUTO) 0.1 10^3/uL (0.0-0.1); BASOPHILS % (AUTO) 1.3 %; EOSINOPHILS # (AUTO) 0.4 10^3/uL (0.0-0.7); EOSINOPHILS % (AUTO) 5.7 %; HCT - HEMATOCRIT 40.4 % (42.0-52.0); LYMPHOCYTES # (AUTO) 1.8 10^3/uL (1.5-3.5); LYMPHOCYTES % (AUTO) 23.8 %; MEAN CORPUSCULAR HEMOGLOBIN 28.6 pg (27.0-31.0); MEAN CORPUSCULAR HGB CONC 32.2 g/dL (32.0-36.0); MEAN CORPUSCULAR VOLUME 88.8 fL (80.0-94.0); MEAN PLATELET VOLUME 9.9 fL (7.4-11.4); MONOCYTES # (AUTO) 0.6 10^3/uL (0.0-1.0); MONOCYTES % (AUTO) 7.5 %; NEUTROPHILS # (AUTO) 4.7 10^3/uL (1.5-6.6); NEUTROPHILS % (AUTO) 61.2 %; PLT - PLATELET COUNT 222 10^3/uL (130-450); RED BLOOD COUNT 4.55 10^6/uL (4.70-6.10); RED CELL DISTRIBUTION WIDTH 12.5 % (12.0-15.0); WHITE BLOOD COUNT 7.7 x10^3/uL (4.8-10.8)
[2022-12-14 07:06] LABS: ALBUMIN 4.3 g/dL (3.2-5.5); ALBUMIN/GLOBULIN RATIO 1.4 (1.0-2.2); ALKALINE PHOSPHATASE 55 IU/L (42-121); ALT ALANINE AMINOTRANSFERASE 20 IU/L (10-60); AST ASPARTATE AMINOTRANSFERASE 22 IU/L (10-42); BILIRUBIN,TOTAL 0.7 mg/dL (0.2-1.0); BUN - BLOOD UREA NITROGEN 19 mg/dL (6-20); CALCIUM 9.6 mg/dL (8.5-10.3); CARBON DIOXIDE - CO2 26 mmol/L (21-32); CHLORIDE 106 mmol/L (101-111); CHOL/HDL RATIO 2.2 (<5.0); CHOLESTEROL 147 mg/dL; CREATININE 0.9 mg/dL (0.6-1.2); GFR - MDRD 87 (>89); GLUCOSE 103 mg/dL (70-100); HDL CHOLESTEROL 67 mg/dL; LDL CHOLESTEROL,CALCULATED 71 mg/dL; LDL/HDL RATIO 1.1 (<3.6); POTASSIUM 4.5 mmol/L (3.5-5.0); SODIUM 141 mmol/L (135-145); TOTAL PROTEIN 7.3 g/dL (6.7-8.2); TRIGLYCERIDES 45 mg/dL; VLDL CHOLESTEROL 9 mg/dL
[2022-12-14 07:18] LABS: THYROID STIMULATING HORMONE 2.19 uIU/mL (0.34-5.60)
== END 2022-12-14 06:34 | disposition home or self-care (01) ==
LOC: LAB 06:33
PROVIDERS: ATTEND Registered Nurse
DX: Z79.899 Other long term (current) drug therapy (principal); Z13.220 Encounter for screening for lipoid disorders; Z13.29 Encounter for screening for other suspected endocrine disorder
CPT/HCPCS: 36415; 80050; 80061; 83721; 84153

== ENCOUNTER 2022-12-14 07:11 | Outpatient (CLI) | payer MEDICAID ==
--- NOTE | 2022-12-14 11:43 | CT Report ---
PROCEDURE: CHEST WO INDICATIONS: PULMONARY NODULE TECHNIQUE: Noncontrast 1mm axial images were acquired from the pulmonary apices to the posterior costophrenic an gles. Axial 5 mm soft tissue kernel reconstructions were performed as well as 8 mm axial MIP and cor onal and sagittal 5 mm reformations. For radiation dose reduction, the following was used: automate d exposure control, adjustment of mA and/or kV according to patient size. COMPARISON: CT chest 05/06/2020. FINDINGS: Image quality: Excellent. Lungs and pleura: No new or enlarging pulmonary nodules. Left apex pulmonary nodule measuring 0.3 cm , (4/71), unchanged. Right lower lobe pulmonary nodule measuring 1.2 x 1.1 cm, (4219), unchanged. Mi ld pleural apical scarring. No acute air space opacities. No pleural effusions or pneumothorax. Jose tral and peripheral airways are patent and normal in caliber. Mediastinum: Heart size is normal. Dense LAD coronary artery calcifications. No pericardial effusion . No mediastinal adenopathy by size criteria. Thoracic aorta and central pulmonary arteries are nor mal in size. Esophagus is normal in caliber. No hiatal hernia. Bones and chest wall: No suspicious bony lesions. Screw at the right scapula. No vertebral body com pression fractures. No axillary or supraclavicular adenopathy by size criteria. The thyroid is norm al in size and there are no incidental findings. Abdomen: Visualized upper abdominal solid organs and bowel loops appear normal in the absence of con trast. IMPRESSION: 1. No new or enlarging pulmonary nodules. Right lower lobe pulmonary nodule measuring 1.2 cm is uncha nged since April 2020 suggesting a benign etiology. 2. No adenopathy. 3. Dense LAD coronary artery calcifications. Reviewed by: Daniel Wetzel MD on 12/14/2022 11:42 AM PST Approved by: Daniel Wetzel MD on 12/14/2022 11:42 AM PST Station ID: [id number]
== END 2022-12-14 07:12 | disposition home or self-care (01) ==
LOC: DI 07:11
PROVIDERS: ATTEND Registered Nurse
DX: R91.8 Other nonspecific abnormal finding of lung field (principal); Z79.899 Other long term (current) drug therapy; Z13.220 Encounter for screening for lipoid disorders; Z13.29 Encounter for screening for other suspected endocrine disorder
CPT/HCPCS: 36415; 80050; 80061; 83721; 84153

== ENCOUNTER 2023-03-22 05:22 | Outpatient (CLI) | payer MEDICAID | END 2023-03-22 20:00 | disposition EMS.NT | LOC: EMS 05:22 | DX: R04.0 Epistaxis (principal) ==

== ENCOUNTER 2023-06-28 21:52 | Outpatient (CLI) | payer MEDICAID | END 2023-06-28 23:59 | disposition short-term general hospital (02) | LOC: EMS 21:52 | DX: I21.3 ST elevation (STEMI) myocardial infarction of unspecified site (principal) | CPT/HCPCS: A0425; A0427; A0999 ==

== ENCOUNTER 2024-03-09 23:09 | Emergency (ER) | payer MEDICAID ==
--- NOTE | 2024-03-10 00:05 | ED Physician Documentation ---
PD HPI BACK PAIN - Stated complaint Stated Complaint: - Chief complaint Chief Complaint: Back Pain - History obtained from History obtained from: Patient - Additional information Additional information: HPI from patient. Patient c/o right flank pain and right lower parathoracic back pain "just an inch or two below the tip of my left scapula". Pain is constant but is exacerbated with movement, partially relieved with rest. Denies dyspnea, denies leg swelling. Denies recent car/plane trips Review of Systems Constitutional: denies: Fever, Chills, Sweats Cardiac: reports: Reviewed and negative Respiratory: reports: Reviewed and negative GI: reports: Abdominal Pain, Nausea, Vomiting. denies: Abdominal Swelling, Constipation, Diarrhea, Hematemesis, Bloody / black stool : denies: Dysuria, Frequency, Hematuria Skin: denies: Rash Musculoskeletal: reports: Back pain PD PAST MEDICAL HISTORY - Past Medical History Cardiovascular: High cholesterol, Hypertension Respiratory: None Endocrine/Autoimmune: None GI: GERD : None HEENT: None Psych: None Musculoskeletal: Gout Derm: None - Past Surgical History Past Surgical History: Yes Ortho: Shoulder arthroplasty Cardiovascular: Coronary stent - Present Medications Home Medications: Ambulatory Orders Medication Instructions Recorded Confirmed Aspirin Chewable [St Darryl 81 mg PO DAILY 04/08/19 11/23/22 Aspirin] Atorvastatin Calcium 40 mg PO DAILY 04/08/19 11/23/22 Losartan Potassium [Cozaar] 100 mg PO DAILY 04/08/19 11/23/22 Omeprazole/Sodium Bicarbonate 1 each PO DAILY 04/08/19 11/23/22 [Omeprazole-Bicarb 20-1,100 Cap] amLODIPine [Norvasc] 5 mg PO DAILY 04/08/19 11/23/22 predniSONE [Prednisone 21-TAB dose 40 mg PO QDAC #21 tab.ds.pk 11/08/20 11/23/22 pack] Amox/Clav 875/125 [Augmentin] 1 tab PO Q12H #20 tablet 12/11/21 11/23/22 Doxycycline Monohydrate 100 mg PO BID #20 cap 12/11/21 11/23/22 Amox/Clav 875/125 [Augmentin 1 tablet PO Q12H 5 Days #10 tablet 11/23/22 875/125 Tab] Oxycodone HCl/Acetaminophen 1 - 2 each PO Q6H PRN #10 tablet 11/23/22 [Percocet 5-325 mg Tablet] Cyclobenzaprine [Flexeril] 10 mg PO TID PRN #20 tablet 03/10/24 Oxycodone HCl/Acetaminophen 1 - 2 each PO Q6H PRN #14 tablet 03/10/24 [Percocet 5-325 mg Tablet] - Allergies Allergies/Adverse Reactions: Allergies Allergy/AdvReac Type Severity Reaction Status Date / Time No Known Drug Allergies Allergy Verified 03/09/24 23:26 - Social History Does the pt smoke?: Yes Smoking Status: Current some day smoker Does the pt drink ETOH?: Yes Does the pt have substance abuse?: No - Immunizations Immunizations are current?: No - POLST Patient has POLST: No PD ED PE NORMAL - Vitals Vital signs reviewed: Yes - General General: Alert and oriented X 3, Well developed/nourished. No: No acute distress (episodically in obvios painful distress) - HEENT HEENT: Moist mucous membranes - Neck Neck: Supple, no meningeal sign - Cardiac Cardiac: RRR, No murmur, No gallop, No rub - Respiratory Respiratory: No respiratory distress, Clear bilaterally - Abdomen Abdomen: Normal bowel sounds, Soft, Non tender, Non distended - Back Back: No CVA TTP, No spinal TTP - Extremities Extremities: No deformity, No tenderness to palpate, Normal ROM s pain - Neuro Neuro: Alert and oriented X 3, production pattern maker 2-12 intact, No motor deficit, No sensory deficit, Normal speech Eye Opening: Spontaneous Motor: Obeys Commands Verbal: Oriented GCS Score: 15 Results - Vitals Vitals: Oxygen O2 Source Room air - Labs Labs: Laboratory Tests 03/10/24 03/10/24 03/10/24 00:12 00:12 01:17 WBC 9.6 RBC 4.21 L Hgb 11.9 L Hct 38.0 L MCV 90.3 MCH 28.3 MCHC 31.3 L RDW 12.8 Plt Count 198 MPV 9.7 Neut # (Auto) 6.2 Lymph # (Auto) 1.8 [place] # (Auto) 1.0 Eos # (Auto) 0.5 Baso # (Auto) 0.1 Absolute Nucleated RBC 0.00 Nucleated RBC % 0.0 Sodium 139 Potassium 4.1 Chloride 106 Carbon Dioxide 27 Anion Gap 6.0 BUN 12 Creatinine 1.0 Estimated GFR (MDRD) 76 L Glucose 110 H Calcium 9.3 Total Bilirubin 0.4 AST 26 ALT 30 Alkaline Phosphatase 62 Total Protein 6.6 Albumin 4.3 Globulin 2.3 Albumin/Globulin Ratio 1.9 Lipase 20 Urine Color YELLOW Urine Clarity CLEAR Urine pH 6.0 Ur Specific [place] 1.020 Urine Protein NEGATIVE Urine Glucose (UA) NEGATIVE Urine Ketones NEGATIVE Urine Occult Blood NEGATIVE Urine Nitrite NEGATIVE Urine Bilirubin NEGATIVE Urine Urobilinogen 0.2 (NORMAL) Ur Leukocyte Esterase NEGATIVE Ur Microscopic Review NOT INDICATED Urine Culture Comments NOT INDICATED PD Medical Decision Making - ED course Complexity details: reviewed results, re-evaluated patient, considered d ifferential, d/w patient ED course: essentially normal CBC, ER abominal panel, and UA. Cause of his flank pain remains unapparent at this time. I am increasingly convinced it is musculoskeletal, as I increasingly observe him having grossly visible and complete exacerbations of his pain with some movements. He is given 30mg IV toradol, 1mg IV dilaudid, and 1 liter NS IV. This worked quite well for him and reported complete resolution of symptoms. He is given take-home packs of vicodin and zofran. Return precautions reviewed, instructed to follow up with PDP in 2-3 days for reevaluation of injuries Departure - Departure Disposition: 01 Home, Self Care Clinical Impression: Back pain Qualifiers: Back pain location: thoracic back pain Chronicity: acute Back pain laterality: right Qualified Code(s): M54.6 - Pain in thoracic spine Condition: Good Instructions: ED Neck Back Pain General Prescriptions: Cyclobenzaprine [Flexeril] 10 mg PO TID PRN #20 tablet PRN Reason: Spasms Oxycodone HCl/Acetaminophen [Percocet 5-325 mg Tablet] 1 - 2 each PO Q6H PRN #14 tablet PRN Reason: pain Comments: There were no concerning nor diagnostic findings on tonight's test, including the blood tests and urinalysis. The cause of your pain is not apparent at this time. Further tests might be helpful in diagnosing the cause, but, at this point, such tests can take place in the outpatient setting. Certainly, if your symptoms worsen and or not controlled with the medications I am prescribing (percocet, flexeril), or if you develop new/concerning signs/symptoms (such as fever, blood in urine, vomiting, abdominal pain), you should return to the emergency department for reevaluation. Contact your primary care provider's office when they are next open to arrange for the next available appointment for reevaluation. I am prescribing a short course of narcotic pain medication for you. These are potentially dangerous and addictive medications that should be used carefully. These medications may constipate you. Take an vojy-ekx-yeazfqd stool softener (docusate) twice daily with plenty of water while taking these medications. If you go 24 hours without a bowel movement, take tkvt-joq-ztrhagz miralax, per package instructions. Do not drink or drive while taking these medications. If you received narcotic or sedating medications while in the emergency department, do not drive for 24 hours. Store this medication in a safe, secure place and out of reach of children. It is a violation of federal law to give or sell this medication to another person or to use in a manner other than prescribed. The ED will not refill narcotic prescriptions, including prescriptions lost or stolen. To dispose of unwanted medications: 1. [facility] at [address] [place] [address] in [place] has a medication drop box. They accept prescription medications (in pill form) Sunday through Sunday 9:00 a.m. to 5:00 p.m. 2. The [facility] Police Department accepts prescription medications (in pill form only) for disposal year round. Call for more information. 3. Contact the [facility] for the next [facility] sponsored prescription drug collection event. , [phone], or [phone]; Forms: Activity restrictions Discharge Date/Time: 03/10/24 03:14
[2024-03-10] MEDS: KETOROLAC 30 MG/ML VIAL IVP STA (00:16)
[2024-03-10] MEDS: HYDROmorphone 1 MG/ML CARPUJECT IVP STA (00:16)
[2024-03-10 00:17] LABS: BASOPHILS # (AUTO) 0.1 10^3/uL (0.0-0.1); EOSINOPHILS # (AUTO) 0.5 10^3/uL (0.0-0.7); EOSINOPHILS % (AUTO) 4.8 %; HGB - HEMOGLOBIN 11.9 g/dL (14.0-18.0); LYMPHOCYTES # (AUTO) 1.8 10^3/uL (1.5-3.5); LYMPHOCYTES % (AUTO) 18.4 %; MEAN CORPUSCULAR HEMOGLOBIN 28.3 pg (27.0-31.0); MEAN CORPUSCULAR HGB CONC 31.3 g/dL (32.0-36.0); MEAN CORPUSCULAR VOLUME 90.3 fL (80.0-94.0); MEAN PLATELET VOLUME 9.7 fL (7.4-11.4); MONOCYTES % (AUTO) 10.5 %; NEUTROPHILS # (AUTO) 6.2 10^3/uL (1.5-6.6); PLT - PLATELET COUNT 198 10^3/uL (130-450); RED BLOOD COUNT 4.21 10^6/uL (4.70-6.10); RED CELL DISTRIBUTION WIDTH 12.8 % (12.0-15.0); WHITE BLOOD COUNT 9.6 x10^3/uL (4.8-10.8)
[2024-03-10 00:44] LABS: ALBUMIN 4.3 g/dL (3.2-5.5); ALBUMIN/GLOBULIN RATIO 1.9 (1.0-2.2); BILIRUBIN,TOTAL 0.4 mg/dL (0.2-1.0); CALCIUM 9.3 mg/dL (8.5-10.3); POTASSIUM 4.1 mmol/L (3.5-4.5); TOTAL PROTEIN 6.6 g/dL (6.4-8.9)
[2024-03-10] MEDS: SODIUM CHLORIDE 0.9% 1,000 ML IV STA (01:06)
[2024-03-10 01:25] LABS: BILIRUBIN,URINE NEGATIVE (NEGATIVE); GLUCOSE, URINE (UA) NEGATIVE (NEGATIVE); KETONES,URINE (UA) NEGATIVE (NEGATIVE); LEUKOCYTE ESTERASE, URINE NEGATIVE (NEGATIVE); NITRITE,URINE NEGATIVE (NEGATIVE); OCCULT BLOOD,URINE NEGATIVE (NEGATIVE); PROTEIN,URINE NEGATIVE (NEGATIVE); UROBILINOGEN,URINE 0.2 (NORMAL) E.U./dL (NORMAL)
[2024-03-10 01:28] LABS: CLARITY,URINE CLEAR (CLEAR)
[2024-03-10] MEDS: CYCLOBENZAPRINE 10 MG Prepack 2 PO PRN (02:37)
[2024-03-10] MEDS: oxyCODONE/ACET 5/325 Prepack 4 PO STA (02:38)
[2024-03-10 03:03] VITALS: BP 133/82; O2SAT 98
== END 2024-03-10 03:14 | disposition home or self-care (01) ==
LOC: ED 23:09
DX: M54.6 Pain in thoracic spine (principal); F17.200 Nicotine dependence, unspecified, uncomplicated
CPT/HCPCS: 36415; 80053; 81003; 83690; 85025; 96374; 99283; 99284; J1170; 81001; 87086

== ENCOUNTER 2024-04-22 07:39 | Outpatient (CLI) | payer MEDICAID ==
--- NOTE | 2024-04-22 10:24 | CT Report ---
PROCEDURE: Chest WO INDICATIONS: LUNG NODULES TECHNIQUE: A CT scan of the chest was performed. Intravenous contrast media was not administered. Images were re corded and evaluated at appropriate window settings. Reformats: axial MIP of the chest, coronal and s agittal. For radiation dose reduction, the following was used: automated exposure control, adjustment of mA and/or kV according to patient size. COMPARISON: 12/14/2022, 05/06/2020. FINDINGS: Image quality: Diagnostic. Chest wall and lower neck: No thyroid nodule which requires sonographic follow up. No axillary or sup raclavicular adenopathy by size. Lungs and pleura: No consolidation. No pleural effusions. No pneumothorax. A 1.2 x 1.2 cm bilobed ri ght lower lobe pulmonary nodule abutting the pleura is unchanged dating back to 05/06/2020, consistent with a benign pulmonary nodule. A 1 mm fissural nodule in the left lung on current image 49/4 is als o stable No new or increasing pulmonary nodules. Mediastinum: Heart size is normal. No pericardial effusion. Dense LAD coronary artery calcifications. No large vessel abnormality. No mediastinal adenopathy by size criteria. Bones: No aggressive osseous abnormality. Upper Abdomen: Unremarkable. IMPRESSION: 1. Stable 1.2 cm maximum diameter pulmonary nodule, consistent with a benign pulmonary nodule. 2. No new or increasing or suspicious pulmonary nodules. 3. Dense LAD coronary artery calcifications. Reviewed by: Shravan Andrews MD on 04/22/2024 10:22 AM PDT Approved by: Shravan Andrews MD on 04/22/2024 10:22 AM PDT Station ID: [id number]
== END 2024-04-22 07:40 | disposition home or self-care (01) ==
LOC: DI 07:39
PROVIDERS: ATTEND Registered Nurse
DX: R91.8 Other nonspecific abnormal finding of lung field (principal); I25.10 Atherosclerotic heart disease of native coronary artery without angina pectoris